=== PATIENT | male | born 1980 | race Two or more races ===

== ENCOUNTER 2018-10-17 10:54 | Emergency (ER) | payer OTHER ==
[2018-10-17 10:59] VITALS: BP 145/91
--- NOTE | 2018-10-17 11:09 | EDPHY ---
HPI/HX/ROS/PE/MDM Narrative: CLINICAL IMPRESSION: Left eyebrow, left forehead laceration ASSESSMENT/PLAN: Patient is a 38 year old male with no significant medical history who presents for evaluation of a facial laceration sustained just prior to arrival. Patient is not toxic appearing, he is in no distress. Physical examination reveals 2 separate lacerations- 1.5 cm laceration superior to left brow and 4 cm v shaped laceration to left mid forehead. There is no evidence of deep structure involvement, vascular compromise, foreign body, or bony involvement. The wound was not contaminated, tetanus status was already up to date. The wounds were irrigated and then repaired as discussed in the procedure note, the patient tolerated this well. There was no loss of consciousness, I have a very low suspicion for a serious head injury or ICH. Wound care instructions discussed with patient and family member. He does not have a PCP, I have provided a referral for him to establish care with. He will return to the ED in 5 days for suture removal. Return precautions discussed- he and his both verbalize understanding and are in agreement with plan. Case and plan of care discussed withe Dr. Lemos. DIFFERENTIAL DIAGNOSIS: Includes but not limited to laceration of tendon or vascular structure, underlying fracture, laceration with retained FB. ED PROCEDURES: Laceration Repair Verbal consent obtained by patient. Risks discussed, including but not limited to infection, pain, retained foreign body, need for additional repair, poor cosmetic result, tendon damage, nerve damage, poor wound healing, vascular damage. Alternatives to repair discussed. [place] protocol used to establish correct patient, procedure, equipment, mining support worker, and site. Anesthesia obtained by local infiltration. Anesthetized with 1% lido w/ epi. Laceration #1 location-superior left brow, length 1.5 cm, depth 4 mm. Repair type intermediate Laceration #2 location- left mid forehead, length 4 cm, depth 6 mm. Repair type intermediate. Patient was prepped and draped in usual sterile fashion. Hemostasis achieved with direct pressure. Wounds explored through entire depth of wound probed and visualized with gloved finger. No suspicion for nerve damage, underlying fracture, vascular damage, foreign body, or contamination. Areas were cleansed with Shur-Clens and irrigated with sterile saline as per protocol. No foreign body or material removed. Repair method- #1: deep interrupted with 5.0 Vicryl, superficial interrupted 5.0 Prolene (4 total). #2: deep interrupted with 5.0 Vicryl, superficial interrupted 6.0 Prolene (10 total). Well aligned, closely approximated. wounds were dressed with antibiotic ointment. Patient tolerated well with no immediate complications. Wound care: Clean and dry x 24 hours, gently clean with soap and water, cover with topical antibiotic ointment/bandage. Suture/Staple removal: 5 Days CHIEF COMPLAINT: Facial laceration HPI: Patient is a 38-year-old male with no significant medical history who presents to the emergency department after sustaining a left brow laceration and left mid forehead laceration. Patient reports he was working on his garage door when one of the cables let loose subsequently hitting him and his left brow and forehead. It did not hit his eye, there was no loss of consciousness. He was able to get the bleeding under control. He denies any headache, dizziness, eye pain or visual changes. Patient is up-to-date on his tetanus status. He denies any other injury or complaint. PAST MEDICAL HISTORY: Denies Pertinent Past Surgical History: Denies Social History: Denies REVIEW OF SYSTEMS: All other systems negative Constitutional: No fever, no chills Musculoskeletal: No deformity, no joint pain Skin: Facial laceration. Denies rash. Neurological: No sensory loss or weakness, 2 point discrimination intact. PHYSICAL EXAM: General Appearance: Alert, oriented, appropriate for age, cooperative, NAD, well hydrated, non-toxic appearing, VSS, no hypoxia. Neurological: Alert and oriented x 3 with no focal deficit. HEENT: Normocephalic, approximately 1.5 cm laceration involving and superior to the left mid brow. Mild associated edema, no obvious ecchymosis. No underlying orbital or bony deformity or tenderness. There is a 2nd laceration superior on the left mid forehead approximately 4 cm in length. No underlying bony tenderness or deformity. Extraocular movements are intact, there is no evidence of entrapment or eye injury. External ears normal, TMs pearly licona with with good light reflex. No evidence of hemotympanum. No Vargas sign or raccoon eyes. Nares are clear, no nasal bridge tenderness. Neck: No midline cervical spinal tenderness, no step-off or deformity. Full range of motion. Supple. Oropharynx is clear, no malocclusion. Dentition normal without evidence of trauma. Upper Extremities: Intact distal pulses, Full range of motion intact, no tenderness, no ecchymosis or edema Lower Extremities: Intact distal pulses, No edema, No tenderness, No cyanosis, full range of motion intact, No calf tenderness bilaterally. MEDICAL DECISION MAKING: Patient was seen independently. Secondary supervising physician at time of evaluation was Dr. Lemos. Diagnosis: Eyebrow and forehead lacerations. New, requires workup Summary: See assessment and plan for summary of ED visit. Clinical lab tests: Not applicable. Independent visualization of images, tracing, or specimens: not applicable. Decision to obtain medical records or history from someone other than the patient: no. Review / Summarize previous medical record: no. Discussed patient with another provider: Dr. Lemos. Dispo: stable, discharge to home. (Sally Dow) MDM: I did not see this patient while he he was in the emergency department. However his care was discussed with the PA while the patient was in the department. I agree with treatment plan and management (Gibran Lemos) - Data Points Medications Given: Discontinued Medications Ibuprofen (Motrin) 600 mg PO EDNOW ONE Stop: 10/17/18 11:57 Last Admin: 10/17/18 12:01 Dose: 600 mg General Initial Vital Signs: Initial Vital Signs Temperature (C) 36.6 C 10/17/18 10:57 Heart Rate 74 10/17/18 10:57 Respiratory Rate 18 10/17/18 10:57 Blood Pressure 145/91 H 10/17/18 10:57 O2 Sat (%) 98 10/17/18 10:57 O2 Delivery Mode Room Air Allergies/Adverse Reactions: No Known Allergies Allergy (Unverified 10/17/18 10:57) Home Medications: Medication Instructions Recorded NK [No Known Home Meds] 10/17/18 Departure - Departure Disposition: Home, Routine, Self-Care Clinical Impression: Facial laceration Qualifiers: Encounter type: initial encounter Qualified Code(s): S01.81XA - Laceration without foreign body of other part of head, initial encounter Condition: Good Instructions: Laceration (ED) Additional Instructions: DISCHARGE INSTRUCTIONS FROM YOUR DOCTOR Thank you for visiting our emergency department today. Please keep in mind that discharge from the emergency department does not mean that there is nothing wrong - it simply means that we have not identified an emergency condition that requires further evaluation or treatment in the hospital. You should always plan to follow up with primary care for re-evaluation of your condition in the next 2-3 days. If you have been referred to a specialist, please call as soon as possible (today or tomorrow) to schedule your follow up appointment at the appropriate time. Keep wound clean and dry for 24 hours. Then remove dressing, clean at least twice daily or when soiled with soap and water, apply antibiotic ointment and dressing. Do not soak the wound while the stitches are in place. Anticipate suture removal in 5 days, you may return to the emergency department or follow up with your primary care provider for suture removal. Tylenol every 4-6 hours as directed as needed for pain. Do not exceed 4000 mg in 24 hours. Ibuprofen as directed every 6-8 hours with food as needed for pain. Stop for stomach upset. Do not exceed 2400 mg in 24 hours. Continue your regular medications as prescribed. Schedule a follow-up visit with your primary care physician or the emergency department for suture removal in 5 days and sooner for wound check for any concerns. Return for signs of wound infection ie: redness, swelling, drainage, foul odor, red streaks, fever, chills, pain, bleeding, if the stitches pop, if the wound opens or for any other new, worsening or worrisome symptoms. People present with illnesses and injuries in different ways, and it is always possible that we have missed something. You may always return for re-evaluation if symptoms worsen or if they are not improving or if you develop new/different symptoms. Again, thank you for choosing our emergency department. We hope that you feel better. Referrals: Consuelo Sterling MD [Medical Doctor] - As per Instructions
[2018-10-17] MEDS ORDERED: IBUPROFEN 600 MG TAB PO ONE (11:56)
== END 2018-10-17 12:10 | disposition home or self-care (01) ==
PROC: 0HQ1XZZ Repair Face Skin, External Approach (ICD-10-PCS; principal; 2018-10-17)
DX: S01.81XA Laceration without foreign body of other part of head, initial encounter (principal); W22.8XXA Striking against or struck by other objects, initial encounter; Y92.015 Private garage of single-family (private) house as the place of occurrence of the external cause; Y93.H3 Activity, building and construction